=== PATIENT | female | born 1975 | race African-American/Black ===

== ENCOUNTER 2016-07-19 04:07 | Emergency (ER) | payer MEDICAID, OTHER ==
[~2016-07-19] VITALS: Ht 180.3 cm; Wt 93.4 kg
[~2016-07-19 04:07] MED LIST: FERROUS SULFAT325 MG ORAL; HUMALOG100 UNIT/4 SUBQ; IBUPROFEN800 MG ORAL; JANUVIA100 MG ORAL; METRONIDAZOLE500 MG ORAL
[2016-07-19] MEDS ORDERED: LANTUS SOL100 UNIT/1 SUBQ (04:15)
[2016-07-19] MEDS ORDERED: METFORMIN HCL500 M1 ORAL (04:15)
--- NOTE | 2016-07-19 04:22 | Emergency Room Report ---
History of Present Illness General Chief Complaint: Abdominal Pain Source: Patient Present Illness HPI This is a 41-year-old female who presents with epigastric pain and vomiting blood. Onset tonight. One episode. Denies any fever chills. Denies any diarrhea. She said she been taking some ibuprofen for headache. Denies any other complaint. No lightheadedness. No chest pain. Allergies: Coded Allergies: No Known Allergies (Unverified , 06/27/14) Patient History Past Medical History: see triage record, old chart reviewed Past Surgical History: appy, hysterectomy Pertinent Family History: none Social History: Denies: smoking Last Menstrual Period: September 192015 Now: No : 2 Para: 1 Immunizations: other Reviewed Nursing Documentation: PMH: Agreed, PSxH: Agreed Nursing Documentation-PMH Past Medical History: No History, Except For Hx Hypertension: Yes Hx Diabetes: Yes Review of Systems Eye: Denies: blurred vision, eye pain ENT: Denies: ear pain, nose congestion, throat swelling Respiratory: Denies: cough, shortness of breath Cardiovascular: Denies: chest pain, palpitations Gastrointestinal: Reports: abdominal pain, nausea, vomiting, Denies: diarrhea Musculoskeletal: Denies: back pain, joint pain Skin: Denies: rash Neurological: Denies: headache, numbness Endocrine: Denies: increased thirst, increased urine Hematologic/Lymphatic: Denies: easy bruising All Other Systems: negative except mentioned in HPI Physical Exam Vital Signs Date Time Temp Pulse Resp B/P Pulse Ox O2 Delivery O2 Flow Rate FiO2 07/19/16 04:08 97.3 97 12 140/95 100 Room Air vitals normal Sp02 EP Interpretation: reviewed, normal General Appearance: well appearing, no apparent distress, alert, obese Head: normocephalic, atraumatic Eyes: bilateral eye EOMI, bilateral eye PERRL ENT: hearing grossly normal, normal pharynx Neck: full range of motion, supple, no meningismus Respiratory: chest non-tender, lungs clear, normal breath sounds Cardiovascular #1: regular rate, rhythm, no murmur Gastrointestinal: normal bowel sounds, non tender, no mass, no organomegaly, no bruit, non-distended Musculoskeletal: back normal, gait/station normal, normal range of motion Psychiatric: mood/affect normal Skin: warm/dry Medical Decision Making Diagnostic Impression: Primary Impression: Abdominal pain Qualified Codes: R10.84 - Generalized abdominal pain Additional Impression: Hematemesis Qualified Codes: K92.0 - Hematemesis ER Course Patient stated that she had an episode of hematemesis. She has no vomiting here. Abdominal exam is benign. Soft. Labs unremarkable. We'll discharge home. I see no evidence of obstruction. No evidence of free air. No evidence of acute abdomen. Lab Results Impression labs normal Chest X-Ray Diagnostic Results EP Interpretation: Yes Findings: no consolidation, no effusion, no pneumothorax, no acute cardiopulmonary disease Number of Views: 1 Last Vital Signs Date Time Temp Pulse Resp B/P Pulse Ox O2 Delivery O2 Flow Rate FiO2 07/19/16 04:08 97.3 97 12 140/95 100 Room Air Status: improved Disposition: HOME, SELF-CARE Condition: Stable Scripts Omeprazole Magnesium (PRILOSEC OTC) 20 Mg Tablet. 20 MG ORAL DAILY, #30 TAB Prov: GUCCI HODGSON M.D. 07/19/16 Additional Instructions: Avoid Motrin, Advil, Naprosyn, or other NSAID. Followup your DrTerrie in 2-3 days. Return if symptom worsen. You may need an endoscopy if symptoms don't improve. GUCCI HODGSON M.D. Jul 19, 2016 04:22
[2016-07-19] MEDS ORDERED: Pantoprazole Inj IVP ONE (04:30)
[2016-07-19 05:07] VITALS: BP 145/95
[2016-07-19 05:15] LABS: APPEARANCE,URINE CLEAR; EOSINOPHILS % (AUTO) 1.9 % (0.0-3.0); KETONES,URINE NEGATIVE (NEGATIVE); LEUKOCYTE ESTERASE ,URINE NEGATIVE (NEGATIVE); LYMPHOCYTES % (AUTO) 29.1 % (20.0-45.0); MEAN CORPUSCULAR HEMOGLOBIN 29.5 PG (27.0-31.0); MEAN CORPUSCULAR HGB CONC 33.2 G/DL (32.0-36.0); MEAN CORPUSCULAR VOLUME 89 FL (80-99); MEAN PLATELET VOLUME 8.3 FL (6.5-10.1); MONOCYTES % (AUTO) 5.3 % (1.0-10.0); NEUTROPHILS % (AUTO) 62.6 % (45.0-75.0); NITRITE,URINE NEGATIVE (NEGATIVE); PH,URINE 6 (4.5-8.0); PLATELET COUNT 288 K/UL (150-450); PROTEIN,URINE NEGATIVE (NEGATIVE); RED CELL DISTRIBUTION WIDTH 13.1 % (11.6-14.8); UROBILINOGEN,URINE NORMAL MG/DL (0.0-1.0); WHITE BLOOD COUNT 12.1 K/UL (4.8-10.8)
[2016-07-19 05:36] LABS: ALANINE AMINOTRANSFERASE 9 U/L (3-33); ALBUMIN/GLOBULIN RATIO 1.1 (1.0-2.7); ANION GAP 13 (5-15); ASPARTATE AMINO TRANSFERASE 15 U/L (5-40); CALCIUM 10.6 mg/dL (8.6-10.2); CARBON DIOXIDE 27 mEQ/L (20-30); CHLORIDE 103 mEQ/L (98-107); CREATININE 0.9 mg/dL (0.5-0.9); GLOMERULAR FILTRATION RATE > 60 mL/min (>60); HEMOLYSIS 3; LIPASE 47 U/L (< 60); POTASSIUM 4.2 mEQ/L (3.4-4.9); SODIUM 143 mEQ/L (135-145); TOTAL PROTEIN 7.5 g/dL (6.6-8.7)
[2016-07-19] MEDS ORDERED: PRILOSEC OTC20 MG ORAL (05:51)
[2016-07-19 06:04] VITALS: BP 140/94
--- NOTE | 2016-07-21 14:06 | Diagnostic Imaging Report ---
Indication: Chest Pain Comparison: None A single view chest radiograph was obtained. Findings: Lungs are clear. Cardiac mediastinal silhouette is within normal limits. Bones are unremarkable. Impression: No acute findings.
== END 2016-07-19 06:07 | disposition home or self-care (01) ==
LOC: EDUNIT# 04:07 → EDBD 04:07 → EMR 04:30
DX: R10.13 Epigastric pain (principal); K92.0 Hematemesis; I10 Essential (primary) hypertension; E11.9 Type 2 diabetes mellitus without complications
CPT/HCPCS: 36415; 71010; 80053; 81003; 82962; 83690; 85025; 96361; 96374; 96375; 99284; C9113; J2405

== ENCOUNTER 2016-07-26 22:07 | Emergency (ER) | payer OTHER ==
[~2016-07-26] VITALS: Ht 165.1 cm; Wt 81.6 kg
[~2016-07-26 22:07] MED LIST changes: +LANTUS SOL100 UNIT/1 SUBQ; +METFORMIN HCL500 M1 ORAL; +PRILOSEC OTC20 MG ORAL
--- NOTE | 2016-07-26 22:27 | Emergency Room Report ---
History of Present Illness General Chief Complaint: Chest Pain Source: Patient, EMS Present Illness HPI The patient presents EMS with chest pain. This began while she was riding the bus. She felt weakness at that time also. She's had one day of upper respiratory symptoms with a runny nose and a slight cough. She also hears herself wheezing. She does not have an inhaler with her. The patient was treated by EMS with aspirin and nitroglycerin spray. Her EKG in the field was normal sinus rhythm and normal EKG. She is diabetic and her Accu-Chek in the field was 128. The patient complains of some dizziness and also sinus congestion at this time. She also complains of a headache. No NVD, dysuria, rashes, joint pain. Post hysterectomy. Allergies: Coded Allergies: No Known Allergies (Unverified , 06/27/14) Patient History Past Medical History: see triage record Past Surgical History: hysterectomy Social History: Denies: smoking Social History Narrative with boyfriend Last Menstrual Period: 09/20/15 Now: No Reviewed Nursing Documentation: PMH: Agreed, PSxH: Agreed Nursing Documentation-PMH Past Medical History: No History, Except For Hx Hypertension: Yes Hx Diabetes: Yes Review of Systems All Other Systems: negative except mentioned in HPI Physical Exam Vital Signs Date Time Temp Pulse Resp B/P Pulse Ox O2 Delivery O2 Flow Rate FiO2 07/26/16 22:08 98.8 86 16 165/82 98 Room Air Sp02 EP Interpretation: reviewed, normal General Appearance: well appearing, no apparent distress, GCS 15 Head: normocephalic Eyes: bilateral eye normal inspection ENT: moist mucus membranes Neck: supple Respiratory: chest non-tender, wheezing, expiration - minimal Cardiovascular #1: regular rate, rhythm, no edema Cardiovascular #2: 2+ radial (R) Gastrointestinal: normal inspection, normal bowel sounds, no mass, non- distended, no guarding, no rebound, tenderness - min epigastric Musculoskeletal: back normal, gait/station normal, normal range of motion, no calf tenderness Neurologic: alert, oriented x3, grossly normal Psychiatric: depressed affect Skin: normal inspection, warm/dry Medical Decision Making Diagnostic Impression: Primary Impression: Sinusitis Qualified Codes: J01.00 - Acute maxillary sinusitis, unspecified Additional Impressions: Chest pain Qualified Codes: R07.9 - Chest pain, unspecified Bronchospasm ER Course Patient presents with chest pain and URI sy. DDx: ACS, bronchitis, sinusitis, GERD, chest wall tenderness, bronchospasm amongst others. Emergent evaluation indicated with EKG, labs, CXR. EMS treatment with aspirin and nitrates have not affected patient. She is diabetic. Treatment with albuterol, sudafed and tylenol as congestion and some bronchospasm present. EKG normal, CXR normal. Labs remarkable for slight leukocytosis, min elevation glucose. Patient improved with treatment. No cardiac emergency present. Patient stable for outpatient observation and treatment. Laboratory Tests Test 07/26/16 22:30 White Blood Count 12.0 K/UL (4.8-10.8) H Red Blood Count 4.23 M/UL (4.20-5.40) Hemoglobin 12.2 G/DL (12.0-16.0) Hematocrit 38.2 % (37.0-47.0) Mean Corpuscular Volume 90 FL (80-99) Mean Corpuscular Hemoglobin 28.9 PG (27.0-31.0) Mean Corpuscular Hemoglobin Concent 32.0 G/DL (32.0-36.0) Red Cell Distribution Width 13.4 % (11.6-14.8) Platelet Count 249 K/UL (150-450) Mean Platelet Volume 8.1 FL (6.5-10.1) Neutrophils (%) (Auto) 69.4 % (45.0-75.0) Lymphocytes (%) (Auto) 21.0 % (20.0-45.0) Monocytes (%) (Auto) 6.7 % (1.0-10.0) Eosinophils (%) (Auto) 2.0 % (0.0-3.0) Basophils (%) (Auto) 0.9 % (0.0-2.0) Sodium Level 144 mEQ/L (135-145) Potassium Level 3.5 mEQ/L (3.4-4.9) Chloride Level 103 mEQ/L (98-107) Carbon Dioxide Level 28 mEQ/L (20-30) Anion Gap 13 (5-15) Blood Urea Nitrogen 12 mg/dL (7-23) Creatinine 0.9 mg/dL (0.5-0.9) Estimate Glomerular Filtration Rate > 60 mL/min (>60) Glucose Level 125 mg/dL (74-106) H Calcium Level 9.4 mg/dL (8.6-10.2) Total Bilirubin 0.5 mg/dL (0.0-1.2) Aspartate Amino Transferase (AST) 15 U/L (5-40) Alanine Aminotransferase (ALT) 9 U/L (3-33) Alkaline Phosphatase 55 U/L (35-104) Total Creatine Kinase 114 U/L (26-140) Troponin I < 0.30 ng/mL (<=0.30) Total Protein 7.2 g/dL (6.6-8.7) Albumin 4.2 g/dL (3.5-5.2) Globulin 3.0 g/dL Albumin/Globulin Ratio 1.4 (1.0-2.7) Microbiology Date/Time Source Procedure Growth Status 07/26/16 22:30 Nose Influenza Types A,B Antigen (HARINI) - Final Complete EKG Diagnostic Results Rate: normal Rhythm: NSR ST Segments: no acute changes Rhythm Strip Diag. Results EP Interpretation: yes Rhythm: NSR, no PVC's, no ectopy Chest X-Ray Diagnostic Results EP Interpretation: Yes Findings: no consolidation, no effusion, no pneumothorax, no acute cardiopulmonary disease Number of Views: 1 Last Vital Signs Date Time Temp Pulse Resp B/P Pulse Ox O2 Delivery O2 Flow Rate FiO2 07/27/16 00:51 98.8 77 14 128/83 100 Room Air Status: improved Disposition: HOME, SELF-CARE Condition: Improved Scripts Famotidine (PEPCID) 20 Mg Tablet 20 MG ORAL DAILY, #20 TAB 0 Refills Prov: Jj Morrow M.D. 07/27/16 Chlorpheniramine Maleate (CHLORPHENIRAMINE MALEATE) 4 Mg Tablet 4 MG ORAL Q6HR Y for congestion, #12 TAB 1 Refill Prov: Jj Morrow M.D. 07/27/16 Levofloxacin* (LEVAQUIN*) 500 Mg Tablet 500 MG ORAL DAILY, #7 TAB Prov: Jj Morrow M.D. 07/27/16 Jj Morrow M.D. Jul 26, 2016 22:27
[2016-07-26] MEDS ORDERED: Pseudoephedrine 30mg tab ORAL ONE (22:30)
[2016-07-26] MEDS ORDERED: Albuterol ud Inhalation HHN ONE (22:30)
[2016-07-26] MEDS ORDERED: Nitroglycerin 2% oint pkt TOPIC ONE (22:30)
[2016-07-26 22:53] VITALS: BP 123/70
[2016-07-26 23:04] LABS: BASOPHILS % (AUTO) 0.9 % (0.0-2.0); MEAN CORPUSCULAR HEMOGLOBIN 28.9 PG (27.0-31.0); MEAN CORPUSCULAR VOLUME 90 FL (80-99); MEAN PLATELET VOLUME 8.1 FL (6.5-10.1); MONOCYTES % (AUTO) 6.7 % (1.0-10.0); NEUTROPHILS % (AUTO) 69.4 % (45.0-75.0); PLATELET COUNT 249 K/UL (150-450); RED BLOOD COUNT 4.23 M/UL (4.20-5.40); RED CELL DISTRIBUTION WIDTH 13.4 % (11.6-14.8)
[2016-07-26 23:17] LABS: TROPONIN I < 0.30 ng/mL (<=0.30)
[2016-07-26 23:21] LABS: ALANINE AMINOTRANSFERASE 9 U/L (3-33); ALBUMIN/GLOBULIN RATIO 1.4 (1.0-2.7); ANION GAP 13 (5-15); ASPARTATE AMINO TRANSFERASE 15 U/L (5-40); CALCIUM 9.4 mg/dL (8.6-10.2); CARBON DIOXIDE 28 mEQ/L (20-30); CHLORIDE 103 mEQ/L (98-107); CREATININE 0.9 mg/dL (0.5-0.9); GLOMERULAR FILTRATION RATE > 60 mL/min (>60); HEMOLYSIS 5; POTASSIUM 3.5 mEQ/L (3.4-4.9); SODIUM 144 mEQ/L (135-145); TOTAL PROTEIN 7.2 g/dL (6.6-8.7)
[2016-07-27] MEDS ORDERED: CHLORPHENIRAMINE4 MG ORAL (00:24)
[2016-07-27] MEDS ORDERED: LEVAQUIN500 MG ORAL (00:24)
[2016-07-27] MEDS ORDERED: PEPCID20 MG ORAL (00:24)
[2016-07-27 00:51] VITALS: BP 128/83
--- NOTE | 2016-07-27 11:52 | Diagnostic Imaging Report ---
Indication: Chest pain Technique: One view of the chest Comparison: 07/19/2016 Findings: Lungs and pleural spaces are clear. Heart size is normal no significant change Impression: No acute process This agrees with the preliminary interpretation provided by the emergency room physician
--- NOTE | 2016-07-28 20:22 | Cardiology Report ---
APPROVED REPORT EKG Measurement Heart [id number] CA [id number] Normal sinus rhythm Normal ECG
== END 2016-07-27 00:51 | disposition home or self-care (01) ==
LOC: EDBD 22:07 → EMR 22:54
DX: J32.9 Chronic sinusitis, unspecified (principal); R07.9 Chest pain, unspecified; I10 Essential (primary) hypertension; E11.9 Type 2 diabetes mellitus without complications; D72.829 Elevated white blood cell count, unspecified; J98.01 Acute bronchospasm
CPT/HCPCS: 36415; 71010; 80053; 82550; 84484; 85025; 86710; 93005; 94640; 94664; 99284

== ENCOUNTER 2017-10-18 14:47 | Emergency (ER) | payer OTHER ==
[~2017-10-18] VITALS: Ht 180.3 cm; Wt 94.3 kg
[~2017-10-18 14:47] MED LIST changes: +CHLORPHENIRAMINE4 MG ORAL; +LEVAQUIN500 MG ORAL; +PEPCID20 MG ORAL
[2017-10-18] MEDS ORDERED: Sodium Chloride 500ML 550 ML IV SCH (15:00)
--- NOTE | 2017-10-18 15:18 | Diagnostic Imaging Report ---
Indication: Pain Technique: XRAY Chest 1v Comparison: 07/26/2016 Findings: Heart size and mediastinal contours are within normal limits and stable compared to the prior exam. There is no focal consolidation, pneumothorax or pleural effusion. Osseous structures demonstrate no acute abnormality. Impression: No radiographic evidence of acute cardiopulmonary disease.
[2017-10-18 16:18] LABS: APPEARANCE,URINE CLEAR; BILIRUBIN, URINE NEGATIVE (NEGATIVE); COLOR,URINE PALE YELLOW; GLUCOSE, URINE (UA) 4+ (NEGATIVE); KETONES,URINE NEGATIVE (NEGATIVE); LEUKOCYTE ESTERASE ,URINE 1+ (NEGATIVE); NITRITE,URINE NEGATIVE (NEGATIVE); PH,URINE 6.5 (4.5-8.0); PROTEIN,URINE NEGATIVE (NEGATIVE); UROBILINOGEN,URINE NORMAL MG/DL (0.0-1.0)
[2017-10-18 16:22] LABS: INR 0.9 (0.9-1.1)
[2017-10-18 16:24] LABS: ANION GAP 10 mmol/L (5-15); BASOPHILS % (AUTO) 1.3 % (0.0-2.0); BLOOD UREA NITROGEN 15 mg/dL (7-18); CALCIUM 10.3 MG/DL (8.5-10.1); CARBON DIOXIDE 28 MMOL/L (21-32); CHLORIDE 101 MMOL/L (98-107); EOSINOPHILS % (AUTO) 1.1 % (0.0-3.0); HEMATOCRIT 39.1 % (37.0-47.0); HEMOGLOBIN 13.3 G/DL (12.0-16.0); LYMPHOCYTES % (AUTO) 27.5 % (20.0-45.0); MEAN CORPUSCULAR VOLUME 87 FL (80-99); MONOCYTES % (AUTO) 5.1 % (1.0-10.0); NEUTROPHILS % (AUTO) 65.1 % (45.0-75.0); PLATELET COUNT 209 K/UL (150-450); POTASSIUM 3.8 MMOL/L (3.5-5.1); RED BLOOD COUNT 4.48 M/UL (4.20-5.40); RED CELL DISTRIBUTION WIDTH 12.7 % (11.6-14.8); SODIUM 138 MMOL/L (136-145); WHITE BLOOD COUNT 12.1 K/UL (4.8-10.8)
[2017-10-18 16:38] LABS: ALANINE AMINOTRANSFERASE 24 U/L (12-78); ALBUMIN 3.5 G/DL (3.4-5.0); ALBUMIN/GLOBULIN RATIO 0.8 (1.0-2.7); ALKALINE PHOSPHATASE 71 U/L (46-116); ASPARTATE AMINO TRANSFERASE 17 U/L (15-37); BILIRUBIN,TOTAL 0.6 MG/DL (0.2-1.0); CREATINE KINASE 171 U/L (26-308)
[2017-10-18 17:00] VITALS: BP 129/80
--- NOTE | 2017-10-18 18:25 | Emergency Room Report ---
History of Present Illness General Chief Complaint: Generalized Weakness Source: Patient, EMS Present Illness HPI Patient presents with vomiting and hyperglycemia. She is unable to keep any liquids down today. She's vomited multiple times. She denies vomiting coffee grounds or blood. She hasn't felt a fever. She's feeling weak at this time. She only takes insulin once a day and does not know how to monitor her blood sugars. Paramedics stated her blood sugar was in 400s. Patient denies fever, chills, diarrhea. Vomit without blood. No melena. No dysuria, abdominal pain, headache, chest pain, dyspnea, cough, rashes, anxiety. H/O asthma, no wheezing. Allergies: Coded Allergies: No Known Allergies (Unverified , 06/27/14) Patient History Past Medical History: see triage record Past Surgical History: hysterectomy Social History: Denies: smoking, alcohol use Social History Narrative with family Last Menstrual Period: hyst Now: No Reviewed Nursing Documentation: PMH: Agreed; PSxH: Agreed Nursing Documentation-PMH Past Medical History: No History, Except For Hx Cardiac Problems: Yes Hx Hypertension: Yes Hx Asthma: Yes Hx Diabetes: Yes Review of Systems All Other Systems: negative except mentioned in HPI Physical Exam Vital Signs Date Time Temp Pulse Resp B/P (MAP) Pulse Ox O2 Delivery O2 Flow Rate FiO2 10/18/17 14:40 97.9 79 18 122/84 100 97.9 10/18/17 17:00 Room Air Sp02 EP Interpretation: reviewed, normal General Appearance: well appearing, no apparent distress, GCS 15 Head: normocephalic, atraumatic Eyes: bilateral eye normal inspection, bilateral eye PERRL ENT: dry mucus membranes Neck: supple Respiratory: lungs clear, normal breath sounds Cardiovascular #1: regular rate, rhythm Cardiovascular #2: 2+ radial (R) Gastrointestinal: normal inspection, normal bowel sounds, non tender, no mass, non-distended Genitourinary: no CVA tenderness Musculoskeletal: back normal, gait/station normal, normal range of motion Neurologic: alert, oriented x3, grossly normal Psychiatric: mood/affect normal Skin: warm/dry Medical Decision Making Diagnostic Impression: Primary Impression: Hypoglycemia Additional Impressions: Leukocytosis Qualified Codes: D72.829 - Elevated white blood cell count, unspecified Persistent vomiting ER Course Diabetic with hyperglycemia and vomiting. DDX: DKA, hyperglycemia, gastroenteritis, AMI/ACS, electrolyte abnormality, pancreatitis, gastroparesis amongst others. Evaluation with EKG, CXR and labs. Treatment with IV hydration and zofran. Will treat glucose if continued elevation. EKG no injury. WBC elevated. No DKA but glucose elevated. Insulin given. Patient somewhat improved but needs further glycemic control and training. Also need for observation for persistent vomiting. Discussed with Dr. Benson at [place] who accepted the patient in transfer. Laboratory Tests Test 10/18/17 15:40 10/18/17 17:10 10/18/17 19:25 White Blood Count 12.1 K/UL (4.8-10.8) H Red Blood Count 4.48 M/UL (4.20-5.40) Hemoglobin 13.3 G/DL (12.0-16.0) Hematocrit 39.1 % (37.0-47.0) Mean Corpuscular Volume 87 FL (80-99) Mean Corpuscular Hemoglobin 29.7 PG (27.0-31.0) Mean Corpuscular Hemoglobin Concent 34.1 G/DL (32.0-36.0) Red Cell Distribution Width 12.7 % (11.6-14.8) Platelet Count 209 K/UL (150-450) Mean Platelet Volume 10.0 FL (6.5-10.1) Neutrophils (%) (Auto) 65.1 % (45.0-75.0) Lymphocytes (%) (Auto) 27.5 % (20.0-45.0) Monocytes (%) (Auto) 5.1 % (1.0-10.0) Eosinophils (%) (Auto) 1.1 % (0.0-3.0) Basophils (%) (Auto) 1.3 % (0.0-2.0) Prothrombin Time 9.8 SEC (9.30-11.50) Prothrombin Time INR 0.9 (0.9-1.1) PTT 25 SEC (23-33) Urine Color Pale yellow Urine Appearance Clear Urine pH 6.5 (4.5-8.0) Urine Specific [place]strip 1.010 (1.005-1.035) Urine Protein Negative (NEGATIVE) Urine Glucose (UA) 4+ (NEGATIVE) H Urine Ketones Negative (NEGATIVE) Urine Occult Blood Negative (NEGATIVE) Urine Nitrite Negative (NEGATIVE) Urine Bilirubin Negative (NEGATIVE) Urine Urobilinogen Normal MG/DL (0.0-1.0) Urine Leukocyte Esterase 1+ (NEGATIVE) H Urine RBC 0-2 /HPF (0 - 2) Urine WBC 0-2 /HPF (0 - 2) Urine Squamous Epithelial Cells Few /LPF (NONE/OCC) Urine Bacteria Few /HPF (NONE) Urine HCG, Qualitative Negative (NEGATIVE) Sodium Level 138 MMOL/L (136-145) Potassium Level 3.8 MMOL/L (3.5-5.1) Chloride Level 101 MMOL/L (98-107) Carbon Dioxide Level 28 MMOL/L (21-32) Anion Gap 10 mmol/L (5-15) Blood Urea Nitrogen 15 mg/dL (7-18) Creatinine 1.0 MG/DL (0.55-1.30) Estimate Glomerular Filtration Rate > 60 mL/min (>60) Glucose Level 345 MG/DL (74-106) H Calcium Level 10.3 MG/DL (8.5-10.1) H Total Bilirubin 0.6 MG/DL (0.2-1.0) Aspartate Amino Transferase (AST) 17 U/L (15-37) Alanine Aminotransferase (ALT) 24 U/L (12-78) Alkaline Phosphatase 71 U/L (46-116) Total Creatine Kinase 171 U/L (26-308) Troponin I 0.000 ng/mL (0.000-0.056) Pro-B-Type Natriuretic Peptide 60 pg/mL (0-125) Total Protein 8.0 G/DL (6.4-8.2) Albumin 3.5 G/DL (3.4-5.0) Globulin 4.5 g/dL Albumin/Globulin Ratio 0.8 (1.0-2.7) L Urine Opiates Screen Negative (NEGATIVE) Urine Barbiturates Screen Negative (NEGATIVE) Phencyclidine (PCP) Screen Negative (NEGATIVE) Urine Amphetamines Screen Negative (NEGATIVE) Urine Benzodiazepines Screen Negative (NEGATIVE) Urine Cocaine Screen Negative (NEGATIVE) Urine Marijuana (THC) Screen Negative (NEGATIVE) Lactic Acid Level 2.30 mmol/L (0.66-2.22) H 1.30 mmol/L (0.66-2.22) EKG Diagnostic Results Rate: normal Rhythm: NSR ST Segments: no acute changes Rhythm Strip Diag. Results EP Interpretation: yes Rhythm: NSR, no PVC's, no ectopy Chest X-Ray Diagnostic Results Chest X-Ray Diagnostic Results : Chest X-Ray Ordered: Yes # of Views/Limited/Complete: 1 View Indication: Other EP Interpretation: Yes Interpretation: no consolidation, no effusion, no pneumothorax Impression: No acute disease Electronically Signed by: Jj Morrow MD Last Vital Signs Date Time Temp Pulse Resp B/P (MAP) Pulse Ox O2 Delivery O2 Flow Rate FiO2 10/18/17 19:28 97.9 76 20 118/67 100 Room Air 97.9 Status: improved Disposition: XFER SHT-TRM HOSP Condition: Serious - but stable for transfer Referrals: NON PHYSICIAN (PCP) Jj Morrow M.D. Oct 18, 2017 18:25
[2017-10-18 19:00] VITALS: BP 118/67
[2017-10-18 19:28] VITALS: BP 118/67
--- NOTE | 2017-10-19 16:54 | Cardiology Report ---
APPROVED REPORT EKG Measurement Heart [id number] CO [id number] [id number] Normal sinus rhythm Normal ECG
== END 2017-10-18 19:30 | disposition short-term general hospital (02) ==
LOC: EDBD 14:47 → EDBEDREQ 15:14 → EMR 15:51
DX: E11.649 Type 2 diabetes mellitus with hypoglycemia without coma (principal); D72.829 Elevated white blood cell count, unspecified; R11.10 Vomiting, unspecified; J45.909 Unspecified asthma, uncomplicated; I10 Essential (primary) hypertension
CPT/HCPCS: 36415; 71045; 80053; 80307; 81003; 81025; 82550; 82962; 83605; 83880; 84484; 85025; 85610; 85730; 93005; 96374; 96375; 99285; J1815; J2405; S0028

== ENCOUNTER 2018-03-12 20:10 | Emergency (ER) | payer MEDICAID, OTHER ==
[~2018-03-12] VITALS: Ht 180.3 cm; Wt 95.3 kg
--- NOTE | 2018-03-12 20:39 | Emergency Room Report ---
History of Present Illness General Chief Complaint: Chest Pain Source: Patient Present Illness HPI Patient presents with 30 minutes of chest pain which started at rest. Substernal aching. She has no shortness of breath. It's somewhat pleuritic. She took no medication. She doesn't feel it's acid reflux. She rates the pain as 9/10, aching, substernal, not radiating, constant. No cough, sore throat, NVD, dysuria, extremity/calf pain, edema, headache, rash , fevers, chills, depression. No wheezes. Risk factor for CAD = diabetes, HTN. Post hysterectomy Allergies: Coded Allergies: No Known Allergies (Unverified , 06/27/14) Patient History Past Medical History: see triage record Past Surgical History: hysterectomy Social History: Denies: smoking, alcohol use Social History Narrative with daughter Last Menstrual Period: 09/2015 Now: No : 4 Para: 1 Reviewed Nursing Documentation: PMH: Agreed; PSxH: Agreed Nursing Documentation-PMH Hx Cardiac Problems: Yes Hx Hypertension: Yes Hx Asthma: Yes Hx Diabetes: Yes Hx Gastrointestinal Problems: No - ovarian cysts, hysterectomy Review of Systems All Other Systems: negative except mentioned in HPI Physical Exam Vital Signs Date Time Temp Pulse Resp B/P (MAP) Pulse Ox O2 Delivery O2 Flow Rate FiO2 03/12/18 20:24 97.5 84 15 144/93 98 Room Air 97.5 Sp02 EP Interpretation: reviewed, normal General Appearance: well appearing, no apparent distress Head: normocephalic, atraumatic Eyes: bilateral eye normal inspection, bilateral eye PERRL ENT: hearing grossly normal, normal voice, moist mucus membranes Neck: full range of motion, supple Respiratory: chest non-tender, lungs clear, normal breath sounds, no respiratory distress, speaking full sentences Cardiovascular #1: regular rate, rhythm Cardiovascular #2: 2+ radial (R) Gastrointestinal: normal inspection, non tender, soft Musculoskeletal: back normal, digits/nails normal, gait/station normal, normal range of motion, no calf tenderness Neurologic: alert, oriented x3, normal gait, grossly normal Psychiatric: mood/affect normal Skin: no rash Medical Decision Making Diagnostic Impression: Primary Impression: Chest pain Qualified Codes: R07.9 - Chest pain, unspecified ER Course Patient presents with chest pain. Differential includes acute coronary syndrome , acute myocardial infarction, bronchitis, pneumothorax, chest wall pain, costochondritis amongst others. Risk factors merit cardiac evaluation though symptoms atypical. She'll be evaluated with an EKG and a chest x-ray. She'll be given Motrin and Tylenol. EKG no injury. CXR normal. Improved with treatment. No medical emergency at this time. Patient stable for outpatient observation and treatment. EKG Diagnostic Results Rate: normal Rhythm: NSR ST Segments: no acute changes Rhythm Strip Diag. Results EP Interpretation: yes Rhythm: NSR, no PVC's, no ectopy Chest X-Ray Diagnostic Results Chest X-Ray Diagnostic Results : Chest X-Ray Ordered: Yes # of Views/Limited/Complete: 1 View Indication: Chest Pain Interpretation: no consolidation, no effusion, no pneumothorax Impression: No acute disease Electronically Signed by: Electronically signed by Jj Morrow MD Last Vital Signs Date Time Temp Pulse Resp B/P (MAP) Pulse Ox O2 Delivery O2 Flow Rate FiO2 03/12/18 21:29 132/88 03/12/18 21:26 97.5 15 98 Room Air 97.5 03/12/18 20:24 84 Status: improved Disposition: HOME, SELF-CARE Condition: Improved Scripts Acetaminophen (Tylenol) 325 Mg Tablet 650 MG ORAL Q6H PRN for Prn Pain/Headache/Temp > 101, #20 TAB 0 Refills Prov: Jj Morrow M.D. 03/12/18 Ibuprofen* (MOTRIN*) 600 Mg Tablet 600 MG ORAL Q6H PRN for For Pain, #20 TAB Prov: Jj Morrow M.D. 03/12/18 Jj Morrow M.D. Mar 12, 2018 20:39
--- NOTE | 2018-03-12 21:13 | Diagnostic Imaging Report ---
EXAM: XR Chest, 1 View CLINICAL HISTORY: CP TECHNIQUE: Frontal view of the chest. COMPARISON: 10/18/2017 chest radiograph FINDINGS: Lungs: Unremarkable. No consolidation. Pleural space: Unremarkable. No pneumothorax. Heart: Unremarkable. No cardiomegaly. Mediastinum: Unremarkable. Bones/joints: Unremarkable. IMPRESSION: No acute cardio pulmonary disease.
[2018-03-12] MEDS ORDERED: TYLENOL325 MG ORAL (21:22)
[2018-03-12] MEDS ORDERED: IBUPROFEN600 MG ORAL (21:22)
[2018-03-12 21:26] VITALS: BP 144/93
[2018-03-12 21:29] VITALS: BP 132/88
--- NOTE | 2018-03-13 13:42 | Cardiology Report ---
APPROVED REPORT EKG Measurement Heart [id number] MT [id number] Normal sinus rhythm Normal ECG
== END 2018-03-12 21:29 | disposition home or self-care (01) ==
LOC: EMR 20:49
DX: R07.9 Chest pain, unspecified (principal); E11.9 Type 2 diabetes mellitus without complications; I10 Essential (primary) hypertension; J45.909 Unspecified asthma, uncomplicated
CPT/HCPCS: 71045; 93005; 99283

== ENCOUNTER 2018-07-09 21:13 | Emergency (ER) | payer OTHER ==
[~2018-07-09] VITALS: Ht 180.3 cm; Wt 104.3 kg
[~2018-07-09 21:13] MED LIST changes: +IBUPROFEN600 MG ORAL; +TYLENOL325 MG ORAL
[2018-07-09 21:15] VITALS: BP 134/82
--- NOTE | 2018-07-09 21:17 | NUR ---
ED Nurse Note: Pt brought in by [id number] coming from home, c/o abd pain (RUQ)x 1hr, denies n/v/d. pt stated 10/10 pain. denies taking medication.
[2018-07-09] MEDS ORDERED: LANTUS SOL100 UNIT/1 SUBQ (21:20)
[2018-07-09] MEDS ORDERED: TENORMIN25 MG ORAL (21:20)
[2018-07-09] MEDS ORDERED: GLUCOPHAGE1000 MG ORAL (21:20)
[2018-07-09] MEDS ORDERED: HUMALOG100 UNIT/4 SUBQ (21:20)
[2018-07-09] MEDS ORDERED: ALBUTEROL2.5 MG/0.1 IH (21:20)
[2018-07-09] MEDS ORDERED: Lidocaine 2% Visc 15ml soln ORAL ONE (22:00)
[2018-07-09] MEDS ORDERED: Mylanta II UD 30ml ORAL ONE (22:00)
[2018-07-09] MEDS ORDERED: Dicyclomine HCl 10mg/5ml oral soln ORAL ONE (22:00)
[2018-07-09 22:07] LABS: APPEARANCE,URINE CLEAR; BILIRUBIN, URINE NEGATIVE (NEGATIVE); COLOR,URINE PALE YELLOW; GLUCOSE, URINE (UA) 4+ (NEGATIVE); KETONES,URINE NEGATIVE (NEGATIVE); LEUKOCYTE ESTERASE ,URINE 1+ (NEGATIVE); NITRITE,URINE NEGATIVE (NEGATIVE); PH,URINE 5 (4.5-8.0); PROTEIN,URINE NEGATIVE (NEGATIVE); UROBILINOGEN,URINE NORMAL MG/DL (0.0-1.0)
--- NOTE | 2018-07-09 22:10 | NUR ---
ED Nurse Note: pt able to give urine sample and was ent to lab. ermd has order, gi cocktail give. unable to obtain iv line as of the moment. charge nurse notified and was able to draw blood on pt and was sent to lab. ermd made aware. will continue to monitor.
--- NOTE | 2018-07-09 22:30 | NUR ---
ED Nurse Note: iv line able to obtain on right upper arm, with good blood return, specimen sent to lab. pt able to tolerate procedure well. will continue to monitor. iv med given.
[2018-07-09 22:44] LABS: BASOPHILS % (AUTO) 1.1 % (0.0-2.0); EOSINOPHILS % (AUTO) 1.3 % (0.0-3.0); HEMATOCRIT 39.3 % (37.0-47.0); LYMPHOCYTES % (AUTO) 28.7 % (20.0-45.0); MEAN CORPUSCULAR VOLUME 87 FL (80-99); MONOCYTES % (AUTO) 6.6 % (1.0-10.0); NEUTROPHILS % (AUTO) 62.3 % (45.0-75.0); PLATELET COUNT 197 K/UL (150-450); RED CELL DISTRIBUTION WIDTH 11.9 % (11.6-14.8); WHITE BLOOD COUNT 12.2 K/UL (4.8-10.8)
[2018-07-09 22:55] LABS: ANION GAP 10 mmol/L (5-15); BLOOD UREA NITROGEN 13 mg/dL (7-18); CALCIUM 9.6 MG/DL (8.5-10.1); CARBON DIOXIDE 25 MMOL/L (21-32); CHLORIDE 104 MMOL/L (98-107); CREATININE 0.9 MG/DL (0.55-1.30); POTASSIUM 4.3 MMOL/L (3.5-5.1); SODIUM 138 MMOL/L (136-145)
[2018-07-09 22:59] LABS: ALANINE AMINOTRANSFERASE 17 U/L (12-78); ALBUMIN/GLOBULIN RATIO 0.7 (1.0-2.7); ALKALINE PHOSPHATASE 84 U/L (46-116); ASPARTATE AMINO TRANSFERASE 20 U/L (15-37); BILIRUBIN,TOTAL 0.5 MG/DL (0.2-1.0)
[2018-07-09 23:55] VITALS: BP 128/82
--- NOTE | 2018-07-09 23:55 | NUR ---
ED Nurse Note: pt was cleared for discharge by jelly pino instruction and prescription explained and pt able to verbalize understanding. id and iv band removed. vss, aox4. pt walked with steady gait. pt walk out of the with all belongings.
[2018-07-09] MEDS ORDERED: RANITIDINE HCL150 MG ORAL (23:57)
[2018-07-09] MEDS ORDERED: ACETAMINOPHEN-1 EAC1 ORAL (23:57)
[2018-07-09] MEDS ORDERED: ONDANSETRON ODT4 MG BC (23:57)
--- NOTE | 2018-07-10 03:40 | Emergency Room Report ---
History of Present Illness General Chief Complaint: Abdominal Pain Source: Patient, EMS Present Illness HPI 43-year-old female presents ED for evaluation. Brought in by EMS for abdominal pain. Started about one hour ago from home. Pain is epigastric, sharp, 10 out of 10, nonradiating. Denies fevers or chills. Denies chest pain or shortness of breath. Denies nausea or vomiting. No other aggravating relieving factors. Denies any other associated symptoms Allergies: Coded Allergies: No Known Allergies (Unverified , 06/27/14) Patient History Past Medical History: DM, HTN, asthma Past Surgical History: none Pertinent Family History: none Social History: Denies: smoking, alcohol use, drug use Last Menstrual Period: 09/20/2015 Now: No : 4 Para: 1 Immunizations: UTD Reviewed Nursing Documentation: PMH: Agreed; PSxH: Agreed Nursing Documentation-PMH Hx Cardiac Problems: Yes Hx Hypertension: Yes Hx Asthma: Yes Hx Diabetes: Yes Review of Systems All Other Systems: negative except mentioned in HPI Physical Exam Vital Signs Date Time Temp Pulse Resp B/P (MAP) Pulse Ox O2 Delivery O2 Flow Rate FiO2 07/09/18 21:06 97.9 88 16 134/82 99 Room Air Sp02 EP Interpretation: reviewed, normal General Appearance: no apparent distress, alert, GCS 15, non-toxic Head: normocephalic, atraumatic Eyes: bilateral eye normal inspection, bilateral eye PERRL ENT: hearing grossly normal, normal pharynx, no angioedema, normal voice Neck: full range of motion, supple/symm/no masses Respiratory: chest non-tender, lungs clear, normal breath sounds, speaking full sentences Cardiovascular #1: regular rate, rhythm, no edema Cardiovascular #2: 2+ carotid (R), 2+ carotid (L), 2+ radial (R), 2+ radial (L) , 2+ dorsalis pedis (R), 2+ dorsalis pedis (L) Gastrointestinal: normal bowel sounds, soft, non-distended, no guarding, no rebound, tenderness Rectal: deferred Genitourinary: normal inspection, no CVA tenderness Musculoskeletal: back normal, gait/station normal, normal range of motion, non- tender Neurologic: alert, oriented x3, responsive, motor strength/tone normal, sensory intact, speech normal Psychiatric: judgement/insight normal, memory normal, mood/affect normal, no suicidal/homicidal ideation Reflexes: 3+ bicep (R), 3+ bicep (L), 3+ tricep (R), 3+ tricep (L), 3+ knee (R) , 3+ knee (L) Skin: normal color, no rash, warm/dry, well hydrated Lymphatic: no adenopathy Medical Decision Making Diagnostic Impression: Primary Impression: Pancreatitis Qualified Codes: K85.90 - Acute pancreatitis without necrosis or infection, unspecified ER Course Hospital Course 43-year-old female presents to ED with abdominal pain Differential diagnoses include: BPH, cystitis, pyelonephritis, kidney stone Clinical course Patient placed on stretcher. barking machine feeder. After initial history and physical I ordered labs, IV fluids, GI cocktail, Pepcid Labs - no leukocytosis, Hb/Hct stable. glucose > 300, no evidence of DKA. Lipase 510, LFTs ok On reassessment patient feeling better. Vital stable. Tolerating by mouth intake. Discussed findings with patient. Lipase is moderately elevated. Discussed option for admission. Patient states she preferred to be discharged at this time. Patient states she has a PMD. Safe for discharge and close outpatient follow-up I feel this is a highly complex case requiring extensive working including EKG/ Rhythm strip, Xray/CT/US, Blood/urine lab work, repeat exams while in ED, and administration of strong opiates/narcotics for pain control, admission to hospital or close patient follow up. Diagnosis - pancreatitis stable and discharged to home with Rx Tylenol #3, zofran, zantac. followup with PMD. return to ED if symptoms recur/worsen. Labs Test 07/09/18 21:21 07/09/18 22:30 Urine Color Pale yellow Urine Appearance Clear Urine pH 5 (4.5-8.0) Urine Specific [place] 1.015 (1.005-1.035) Urine Protein Negative (NEGATIVE) Urine Glucose (UA) 4+ (NEGATIVE) Urine Ketones Negative (NEGATIVE) Urine Blood Negative (NEGATIVE) Urine Nitrite Negative (NEGATIVE) Urine Bilirubin Negative (NEGATIVE) Urine Urobilinogen Normal MG/DL (0.0-1.0) Urine Leukocyte Esterase 1+ (NEGATIVE) Urine RBC 0-2 /HPF (0 - 2) Urine WBC 10-15 /HPF (0 - 2) Urine Squamous Epithelial Cells Many /LPF (NONE/OCC) Urine Bacteria Few /HPF (NONE) Urine HCG, Qualitative Negative (NEGATIVE) White Blood Count 12.2 K/UL (4.8-10.8) Red Blood Count 4.50 M/UL (4.20-5.40) Hemoglobin 13.0 G/DL (12.0-16.0) Hematocrit 39.3 % (37.0-47.0) Mean Corpuscular Volume 87 FL (80-99) Mean Corpuscular Hemoglobin 28.8 PG (27.0-31.0) Mean Corpuscular Hemoglobin Concent 32.9 G/DL (32.0-36.0) Red Cell Distribution Width 11.9 % (11.6-14.8) Platelet Count 197 K/UL (150-450) Mean Platelet Volume 8.6 FL (6.5-10.1) Neutrophils (%) (Auto) 62.3 % (45.0-75.0) Lymphocytes (%) (Auto) 28.7 % (20.0-45.0) Monocytes (%) (Auto) 6.6 % (1.0-10.0) Eosinophils (%) (Auto) 1.3 % (0.0-3.0) Basophils (%) (Auto) 1.1 % (0.0-2.0) Sodium Level 138 MMOL/L (136-145) Potassium Level 4.3 MMOL/L (3.5-5.1) Chloride Level 104 MMOL/L (98-107) Carbon Dioxide Level 25 MMOL/L (21-32) Anion Gap 10 mmol/L (5-15) Blood Urea Nitrogen 13 mg/dL (7-18) Creatinine 0.9 MG/DL (0.55-1.30) Estimat Glomerular Filtration Rate > 60 mL/min (>60) Glucose Level 330 MG/DL (74-106) Calcium Level 9.6 MG/DL (8.5-10.1) Total Bilirubin 0.5 MG/DL (0.2-1.0) Aspartate Amino Transf (AST/SGOT) 20 U/L (15-37) Alanine Aminotransferase (ALT/SGPT) 17 U/L (12-78) Alkaline Phosphatase 84 U/L (46-116) Total Protein 7.2 G/DL (6.4-8.2) Albumin 3.0 G/DL (3.4-5.0) Globulin 4.2 g/dL Albumin/Globulin Ratio 0.7 (1.0-2.7) Lipase 510 U/L (73-393) Last Vital Signs Date Time Temp Pulse Resp B/P (MAP) Pulse Ox O2 Delivery O2 Flow Rate FiO2 07/09/18 23:55 98.0 80 16 128/82 99 Room Air Status: improved Disposition: HOME, SELF-CARE Condition: Stable Scripts Ondansetron Odt* (ZOFRAN ODT*) 4 Mg Tab.rapdis 4 MG BC EVERY 6 HOURS PRN for Nausea & Vomiting, #10 TAB 0 Refills Prov: Matt Santana MD 07/09/18 Ranitidine Hcl* (ZANTAC*) 150 Mg Tablet 150 MG ORAL TWICE A DAY, #30 TAB Prov: Matt Santana MD 07/09/18 Acetaminophen With Codeine (T#3) (TYLENOL #3 TAB*) Y Tab 1 TAB ORAL Q8H PRN for For Pain for 3 Days, TAB Prov: Matt Santana MD 07/09/18 Referrals: [facility] Patient Instructions: Acute Pancreatitis, [id number] Matt Santana MD Jul 10, 2018 03:40
== END 2018-07-09 23:55 | disposition home or self-care (01) ==
LOC: EDBD 21:13 → EMR 22:00
DX: K85.90 Acute pancreatitis without necrosis or infection, unspecified (principal); E11.9 Type 2 diabetes mellitus without complications; I10 Essential (primary) hypertension
CPT/HCPCS: 36415; 80053; 81003; 81025; 83690; 85025; 87086; 96361; 96374; 99284; J2405; S0028